=== PATIENT | female | born 2000 | race Caucasian/White ===

== ENCOUNTER 2024-10-04 14:15 | Observation (INO) ==
[2024-10-04 14:51] LABS: Basophils # (auto) 0.04 K/uL (0.00-0.20); Basophils % (auto) 0.2 %; Eosinophils # (auto) 0.02 K/uL (0.00-0.50); Eosinophils % (auto) 0.1 %; Hematocrit (blood only) 38.5 % (37.0-47.0); Hemoglobin 12.8 g/dl (12.0-16.0); Immature Granulocytes # (auto) 0.08 K/uL (0.01-0.20); Immature Granulocytes % (auto) 0.5 %; Lymphocytes # (auto) 1.73 K/uL (1.20-3.40); Lymphocytes % (auto) 10.5 %; Mean Corpuscular Hemoglobin 29.4 pg (25.0-34.0); Mean Corpuscular Hgb Conc 33.2 g/dL (32.0-36.0); Mean Corpuscular Volume 88.5 fL (80.0-100.0); Mean Platelet Volume 9.4 fL (9.4-12.4); Monocytes # (auto) 1.04 K/uL (0.11-0.59); Monocytes % (auto) 6.3 %; Neutrophils # (auto) 13.52 K/uL (1.40-6.50); Neutrophils % (auto) 82.4 %; Platelet Count 265 K/uL (130-400); RDW Coefficient of Variation 14.2 % (11.5-14.5); Red Blood Count 4.35 M/uL (4.20-5.40); White Blood Count 16.43 K/ul (4.8-10.8)
[2024-10-04 15:07] LABS: Albumin Globulin Ratio 1.2 (0.9-2); Albumin Level 4.4 gm/dl (3.4-5.0); BUN Creatinine Ratio 16.9 (10-20); Bilirubin,Total 1.4 mg/dl (0.2-1.0); Calcium 9.7 mg/dl (8.6-10.3); Creatinine Clr Calc Pharmacy 107.8 ml/min; Globulin 3.7 gm/dl (2.5-4.0); Total Protein 8.1 gm/dl (6.0-8.3)
--- NOTE | 2024-10-04 15:07 | Emergency Department Note ---
Impression & Plan Acute appendicitis, UTI (urinary tract infection) ED Provider Note NAME: HERNAN URIAS AGE: 23 SEX: F : 2000 ARRIVES VIA: Walk-In INFORMANT: Patient ED PROVIDER(S): GUERO Aguero, Donna Arthur MD CHIEF COMPLAINT: Pelvic pain HISTORY OF PRESENT ILLNESS: This 23-year-old female patient presents to the emergency department via private vehicle for evaluation of pelvic pain that began last night. She reports that awoke her from sleeping. 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 She states the pain feels different than her normal pelvic cramping. She states she awoke at 0430 this morning with severe pain, with rigors and cold sweats. She states the pain began to resolve, however, it returned. She denies fever, nausea, or vomiting. REVIEW OF SYSTEMS: A review of systems was performed with positives and pertinent negatives listed in the history of present illness. All other systems were reviewed and are negative. ALLERGIES: See below MEDICATIONS: See below PMH: See below PHYSICAL EXAM: VITALS: Vitals are noted on the nurse's note and reviewed by myself. Vital signs stable. GENERAL: 23-year-old female, in no acute distress, nondiaphoretic, well- developed well-nourished. SKIN: The skin was without rashes, erythema, edema, or bruising. HEAD: Normocephalic atraumatic. EYES: Pupils equal round and reactive to light and accommodation. Conjunctivae without injection, sclerae without icterus. Extraocular movements intact. NECK: Supple without nuchal rigidity. No lymphadenopathy. No thyromegaly. HEART: Regular rate and rhythm without murmurs gallops or rubs. LUNGS: Clear to auscultation bilaterally without wheezes, rales or rhonchi. No retractions or accessory muscle use. ABDOMEN: Positive bowel sounds x 4. Soft, TTP, RLQ, radiation of pain to the umbilicus. MUSCULOSKELETAL: No muscle atrophy, erythema, or edema noted. Full range of motion without joint tenderness in all extremities. No tenderness to palpation. Normal gait. Strength 5/5 throughout. NEURO: Patient was alert and oriented to person place and time. No focal neurological deficits. MEDICAL DECISION MAKING: The patient is a pleasant 23-year-old female who arrives to the emergency department for evaluation of the above-stated complaint. A saline lock was established, CBC, CMP, beta-hCG qualitative, urinalysis were obtained. CBC shows leukocytosis, 16.43, stable hemoglobin and hematocrit, CMP unremarkable, beta-hCG qualitative negative, urinalysis 3+ leukocyte esterase, greater than 50 WBCs, negative nitrites, negative bacteria. CT imaging of the abdomen and pelvis with IV contrast was obtained which shows findings consistent with acute appendicitis. A transvaginal ultrasound was also obtained prior to results of the CT scan returning, which showed no acute findings. I contacted Dr. James, from general surgery who agreed to evaluate the patient. Dr. James recommended providing the patient with IV antibiotics. The patient was provided 1 L of fluids, 1 g of IV acetaminophen, 4 g of morphine, and 4.5 mg of IV Zosyn. The patient was made n.p.o., and transported to the OR for an appendectomy. Please refer to Dr. James's documentation for further patient workup and care. DIFFERENTIAL DIAGNOSIS: Appendicitis, ovarian cyst, ovarian torsion, ectopic , TOA, PID, infections, diverticulitis, UTI, obstruction, mesenteric ischemia, aortic pathology, inflammatory bowel disease, renal colic, PUD, pancreatitis, biliary pathology, hernia, volvulus, constipation, as well as other pathologies. The chart was completed utilizing [employer] Speech voice recognition software. Grammatical errors, random word insertions, pronoun errors, and incomplete sentences are an occasional consequence of this system due to software limitations, ambient noise, and hardware issues. Any formal questions or concerns about the content, text, or information contained within the body of this dictation should be directly addressed to the physician for clarification. Past Med/Surg History Problem List (Updated 10/06/24 @ 10:09 by GUERO May) UTI (urinary tract infection) (Acute) Acute appendicitis (Acute) No significant past surgical history No chronic diseases present Social History Smoking Status: Never smoker Hx Alcohol Use: Yes Alcohol type: hard liquor Hx Substance Use: No Preferred Language: Slovak Communication Ability: Effective Education Department Registrar Required: No Beliefs That Will Affect Care: None Current Living Situation Comment: Student lives with apartment and roomates. Other Information That Helps Us Care for You: No Feels Safe at Home: Yes Safety Concerns: Feels Safe At This Time Assistive Devices: None Allergies Allergies Allergy/AdvReac Type Severity Reaction Status Date / Time No Known Allergies Allergy Verified 10/04/24 18:04 Home Meds Home Medications Medication Instructions Recorded Confirmed levonorgestrel-ethinyl estradiol 1 tab PO DAILY 03/03/24 10/04/24 0.1 mg-20 mcg tablet (Sronyx) infliximab 100 mg intravenous 100 mg IV 4XWK 10/04/24 10/04/24 solution (Remicade) Previous Rx's Medication Instructions Recorded oxycodone-acetaminophen 5 mg-325 1 tab PO Q6H PRN pain #7 tabs 10/05/24 mg tablet Results & Data (ED) Vital Signs Vital Signs - 24 hr 10/04/24 14:18 Temperature 36.4 C L Temperature Source Temporal Artery Scan Pulse Rate 113 H Respiratory Rate 20 Respiratory Effort / Characteristics Non-Labored Spontaneous Respiratory Depth Normal Blood Pressure 147/114 H Blood Pressure Mean 125 Blood Pressure Position Sitting Pulse Oximetry 98 Oxygen Delivery Method Room Air Sepsis Recent Fever Within 48 Hours No Sepsis New/Unexplained Change in Mental Status N/A Sepsis Action Taken by Nursing No Action Required Home Medications Current Medication List: was personally reviewed by me Laboratory Data Attestation: I reviewed the patient's lab results. 10/04/24 14:35 10/04/24 14:35 Lab Results 10/04/24 10/04/24 Range/Units 14:33 14:35 WBC 16.43 H (4.8-10.8) K/ul RBC 4.35 (4.20-5.40) M/uL Hgb 12.8 (12.0-16.0) g/dl Hct 38.5 (37.0-47.0) % MCV 88.5 (80.0-100.0) fL MCH 29.4 (25.0-34.0) pg MCHC 33.2 (32.0-36.0) g/dL RDW Std Deviation 46.0 (36.4-46.3) fL RDW Coeff of [place] 14.2 (11.5-14.5) % Plt Count 265 (130-400) K/uL MPV 9.4 (9.4-12.4) fL Immature Gran % (Auto) 0.5 % Neut % (Auto) 82.4 % Lymph % (Auto) 10.5 % [place] % (Auto) 6.3 % Eos % (Auto) 0.1 % Baso % (Auto) 0.2 % Neut # (Auto) 13.52 H (1.40-6.50) K/uL Lymph # (Auto) 1.73 (1.20-3.40) K/uL [place] # (Auto) 1.04 H (0.11-0.59) K/uL Eos # (Auto) 0.02 (0.00-0.50) K/uL Baso # (Auto) 0.04 (0.00-0.20) K/uL Immature Gran # (Auto) 0.08 (0.01-0.20) K/uL Sodium 132 L (136-145) mmol/L Potassium 4.0 (3.5-5.1) mmol/L Chloride 100 (98-107) mmol/L Carbon Dioxide 25 (21-32) mmol/L Anion Gap 7 (3-11) BUN 13 (6-23) mg/dl Creatinine 0.77 (0.6-1.2) mg/dl Est Cr Clr Drug Dosing 107.8 ml/min eGFR 112.48 BUN/Creatinine Ratio 16.9 (10-20) Glucose 95 (70-99(Fasting)) mg/dl Calcium 9.7 (8.6-10.3) mg/dl Total Bilirubin 1.4 H (0.2-1.0) mg/dl AST 51 H (13-39) U/L ALT 51 (7-52) U/L Alkaline Phosphatase 69 (34-104) U/L Total Protein 8.1 (6.0-8.3) gm/dl Albumin 4.4 (3.4-5.0) gm/dl Globulin 3.7 (2.5-4.0) gm/dl Albumin/Globulin Ratio 1.2 (0.9-2) Lipase 19 (11-82) U/L HCG, Qual Negative (Negative) Urine Color [place] Urine Appearance Cloudy A (Clear) Urine pH 7.0 (4.5-7.5) Ur Specific [place] 1.022 (1.000-1.030) Urine Protein Trace H (Negative) Urine Glucose (UA) Negative (Negative) Urine Ketones Trace H (Negative) Urine Blood Trace H (Negative) Urine Nitrite Negative (Negative) Urine Bilirubin Negative (Negative) Urine Urobilinogen Negative (Negative) Ur Leukocyte Esterase 3+ H (Negative) Urine WBC (Auto) >50 H (0-5) /hpf Urine RBC (Auto) 0-2 (0-2) /hpf U Hyaline Cast (Auto) 0-2 (0-2) /lpf U Epithel Cells (Auto) 3-5 H (0-2) /hpf Urine Bacteria (Auto) None Seen (None Seen) Administered Medications Discontinued Medications Bupivacaine HCl/Epinephrine Bitart (Bupivacaine/Epinephrine 0.5% Mpf 1:200,000 30 Ml Vial) Confirm Administered Dose 30 ml .ROUTE .STK-MED ONE Stop: 10/04/24 18:48 Last Admin: 10/04/24 19:11 Dose: 30 ml Documented By: PUJA Enoxaparin Sodium (Enoxaparin Inj 40 Mg/0.4 Ml Syr) 40 mg SQ Q24H RITO Stop: 11/04/24 08:59 Last Admin: 10/05/24 08:06 Dose: 40 mg Documented By: LESVIA Sodium Chloride (Nss) 1,000 mls @ 999 mls/hr IV .Q1H1M ONE Stop: 10/04/24 17:19 Last Infusion: 10/04/24 17:42 Dose: Infused Documented By: Admin: 10/04/24 16:40 Dose: 999 mls/hr Documented By: MARGUERITE Acetaminophen (Ofirmev) 1,000 mg in 100 mls @ 400 mls/hr IV NOW STA Stop: 10/04/24 17:04 Last Infusion: 10/04/24 17:40 Dose: Infused Documented By: Admin: 10/04/24 17:23 Dose: 400 mls/hr Documented By: MARGUERITE Piperacillin Sod/Tazobactam Sod (Zosyn) 4.5 gm in 100 mls @ 200 mls/hr IV NOW ONE; Protocol Stop: 10/04/24 18:03 Last Infusion: 10/04/24 20:49 Dose: Infused Documented By: Admin: 10/04/24 17:45 Dose: 200 mls/hr Documented By: ADOLPH Ioversol (Optiray 320 100ml) 93 ml IV ONCE ONE Stop: 10/04/24 15:26 Last Admin: 10/04/24 15:26 Dose: 93 ml Documented By: NEAL Ketorolac Tromethamine (Ketorolac 30 Mg/Ml Vial) 30 mg IV Q6H PRN PRN Reason: Pain & Pre PT Stop: 10/09/24 20:22 Last Admin: 10/05/24 05:52 Dose: 30 mg Documented By: Admin: 10/04/24 22:09 Dose: 30 mg Documented By: LOWELL Morphine Sulfate (Morphine Sulfate 4 Mg/Ml 1 Ml Carp\Vial) 4 mg IV NOW STA Stop: 10/04/24 16:51 Last Admin: 10/04/24 17:17 Dose: 4 mg Documented By: MARGUERITE Oxycodone/Acetaminophen (Oxycodone/Acetaminophen 5mg/325mg Tab) 1 tab PO Q4H PRN PRN Reason: MODERATE Pain (4,5,6) & Pre PT Stop: 10/18/24 20:22 Last Admin: 10/05/24 11:09 Dose: 1 tab Documented By: LESVIA Imaging Data Attestation: I personally reviewed and interpreted this imaging study as follows: Discharge Plan Visit Data Chief Complaint: Abdominal Pain Stated Complaint: ABDOMINAL PAIN ED Provider: Donna Arthur ED Midlevel Provider: Ruthie Man Discharge Problem: Acute appendicitis, UTI (urinary tract infection) Patient Disposition: Admitted As Inpatient Discharge Instructions Interventions: ED Discharge Assessment Last Done: 10/04/24 18:13 Discharge Problem: Acute appendicitis Qualifiers: Acute appendicitis type: unspecified acute appendicitis type Qualified Code(s): K35.80 - Unspecified acute appendicitis UTI (urinary tract infection) Qualifiers: Urinary tract infection type: acute cystitis Hematuria presence: without hematuria Qualified Code(s): N30.00 - Acute cystitis without hematuria
[2024-10-04 15:09] LABS: Pregnancy Test, Serum Negative (Negative)
[2024-10-04 15:13] LABS: Appearance Urine Cloudy (Clear); Bacteria Urine Automated None Seen (None Seen); Bilirubin Urine Negative (Negative); Blood Urine Trace (Negative); Cast Urine Automated 0-2 /lpf (0-2); Color Urine Orange; Glucose Urine UA Negative (Negative); Ketones Urine Trace (Negative); Leukocyte Esterase Urine 3+ (Negative); Nitrite Urine Negative (Negative); Protein Urine Trace (Negative); RBC Urine Automated 0-2 /hpf (0-2); Specific Gravity Urine 1.022 (1.000-1.030); Urobilinogen Urine Negative (Negative); WBC Urine Automated >50 /hpf (0-5)
[2024-10-04] MEDS: OPTIRAY 320 100ml IV ONE (15:26)
--- NOTE | 2024-10-04 16:08 | CT Scan Report ---
ABDOMEN AND PELVIS CT WITH IV CONTRAST CT DOSE: 681.25 mGy.cm HISTORY: Acute lower pelvic pain pelvic pain TECHNIQUE: Multiaxial CT images of the abdomen and pelvis were performed following the IV administrat ion of 93 cc of Optiray, A dose lowering technique was utilized adhering to the principles of ALARA. COMPARISON STUDY: None. FINDINGS: The lung bases are clear. The liver, spleen, gallbladder, pancreas, kidneys, and adrenal gl ands are within normal limits. Borderline enlarged retroperitoneal lymph nodes. Right lower quadrant lymph nodes measure up to 9 mm. The appendix is dilated, fluid-filled and inflamed measuring up to 9 mm. No abscess. Trace pelvic ascites. Mild wall thickening noted involving the cecum, ascending colon and also a few loops of ileum within the pelvis. Decompressed urinary bladder with mild wall thicken ing. Unremarkable uterus. No adnexal mass lesions. Moderate fecal retention of the rectum. Tampon wit hin the vagina. No acute fracture. IMPRESSION: 1. Acute appendicitis. No pneumoperitoneum or abscess. 2. Reactive ileocolic lymphadenopathy. 3. Mild wall thickening involving a few loops of ileum and also the cecum, also likely reactive. ACT 112: Negative or not required by law. The above report was generated using voice recognition software. It may contain grammatical, syntax o r spelling errors. Electronically signed by: Adam Gómez M.D. 10/04/2024 4:07 PM
[2024-10-04] MEDS: SODIUM CHLORIDE 0.9% 1,000 ML IV ONE (16:40)
--- NOTE | 2024-10-04 16:53 | Ultrasound Report ---
EXAM: US Pelvis Transabdominal and Transvaginal Complete INDICATION: Right lower quadrant pain. TECHNIQUE: Real-time complete transabdominal and transvaginal pelvic ultrasound with image documentation. Transvaginal imaging was used for better evaluation of the endometrium and adnexa. COMPARISON: No relevant prior studies available. FINDINGS: Uterus/cervix: Trace fluid in the cervix. No myometrial mass. The uterus measures 6.1 x 2.2 x 3.4 cm. The endometrial stripe measures 0.2 cm in thickness. Right ovary: No abnormality noted. Normal blood flow. The right ovary measures 2.4 x 1.6 x 0.6 cm. Left ovary: Slightly obscured by bowel gas artifact. Normal blood flow. The left ovary measures 3.2 x 1.4 x 1.0 cm. Free fluid: No free or loculated pelvic fluid. Bladder: No significant abnormality noted. Wall is normal thickness for degree of distention. IMPRESSION: No acute findings in the pelvis. ACT 112: Negative or not required by law. Electronically signed by Libra Koch 10-04-2024 4:53 PM
[2024-10-04] MEDS: MoRPHine SULFATE 4 MG/ML 1 ML CARP\\VIAL IV STA (17:17)
[2024-10-04] MEDS: ACETAMINOPHEN 1,000 MG/100 ML VIAL IV STA (17:23)
[2024-10-04] MEDS ORDERED: PROPOFOL IV EMULSION 10 MG/ML 20 ML VIAL IV ONE (17:41)
[2024-10-04] MEDS ORDERED: ONDANSETRON INJ 2 MG/ML 2 ML VIAL ONE (17:41)
[2024-10-04] MEDS ORDERED: GLYCOPYRROLATE 0.2 MG/ML VIAL ONE (17:41)
[2024-10-04] MEDS ORDERED: LIDOCAINE 2% 2 ML VIAL/AMP(20MG/ML) INFIL ONE (17:41)
[2024-10-04] MEDS ORDERED: MIDAZOLAM HCL 1 MG/ML 2ML VIAL ONE (17:41)
[2024-10-04] MEDS ORDERED: ROCURONIUM BROMIDE 10 MG/ML 5 ML VIAL IV ONE (17:41)
[2024-10-04] MEDS ORDERED: fentaNYL citrate PF 100 MCG/2 ML VIAL ONE (17:41)
[2024-10-04] MEDS ORDERED: DEXAMETHASONE SOD INJ 4 MG/ML VIAL ONE (17:41)
[2024-10-04] MEDS ORDERED: SUGAMMADEX SODIUM 200 MG/2 ML VIAL IV ONE (17:42)
[2024-10-04] MEDS: PIPERACILLIN/TAZOBACTAM 4.5 GM/100 ML BAG IV ONE (17:45)
--- NOTE | 2024-10-04 18:08 | History & Physical Report ---
Date of Service October 04, 2024 Assessment & Plan (1) Acute appendicitis: Plan 23-year-old woman presents with acute appendicitis. We discussed the risks and benefits of a laparoscopic appendectomy. All her questions were answered. She is agreeable to proceed. Consent has been obtained. Will take her to the operating room at the earliest convenience. Zosyn has been ordered. History of Present Illness Primary Care Provider: [facility] 23-year-old woman presents with a 16-hour history of abdominal pain diffuse at first and now localized to the right lower quadrant. She did have some chills and sweats. She denies nausea or vomiting. Last meal was yesterday. She has not had a bowel movement today. She denies chest pain or shortness of breath. She is on infliximab for hidradenitis. Allergies Allergy/AdvReac Type Severity Reaction Status Date / Time No Known Allergies Allergy Verified 10/04/24 18:04 Home Medications Medication Instructions Recorded Confirmed Type levonorgestrel-ethinyl estradiol 1 tab PO DAILY 03/03/24 10/04/24 History 0.1 mg-20 mcg tablet (Sronyx) infliximab 100 mg intravenous 100 mg IV 10/04/24 History solution (Remicade) Past Med/Surg History Problem List (Updated 10/04/24 @ 18:09 by Max James MD) Acute appendicitis No significant past surgical history No chronic diseases present Social History Smoking Status: Current every day smoker Preferred Language: Kyrgyz Feels Safe at Home: Yes Review of Systems Review of Systems: All systems reviewed & are unremarkable except as noted in HPI & below Physical Exam Constitutional: WD/WN, vitals as above Eyes: PERRL, conjunctivae normal, anicteric sclerae Neck: trachea midline, no thyromegaly Respiratory: normal respiratory effort; no respiratory distress and no labored breathing Cardiovascular: Rate/Rhythm: regular rate and regular rhythm Gastrointestinal (Abdomen): Inspection/Auscultation: abdomen normal to inspection; abdomen not distended Percussion/Palpation: + abdomen tender ( RLQ) and abdomen soft; no guarding and abdomen not rigid positive Rovsing sign Skin: no rashes, warm and dry Psychiatric: A+Ox3, euthymic affect Results & Data Results & Data Vital Signs (Past 12 Hours) Vital Signs Temp Pulse Pulse Resp BP BP Pulse Ox 10/04/24 16:42 88 18 121/84 98 10/04/24 14:18 36.4 C L 113 H 20 147/114 H 98 O2 Del Method 10/04/24 16:42 Room Air 10/04/24 14:18 Room Air Laboratory Results 10/04/24 10/04/24 Range/Units 14:35 14:33 WBC 16.43 H (4.8-10.8) K/ul RBC 4.35 (4.20-5.40) M/uL Hgb 12.8 (12.0-16.0) g/dl Hct 38.5 (37.0-47.0) % MCV 88.5 (80.0-100.0) fL MCH 29.4 (25.0-34.0) pg MCHC 33.2 (32.0-36.0) g/dL RDW Std Deviation 46.0 (36.4-46.3) fL RDW Coeff of [place] 14.2 (11.5-14.5) % Plt Count 265 (130-400) K/uL MPV 9.4 (9.4-12.4) fL Immature Gran % (Auto) 0.5 % Neut % (Auto) 82.4 % Lymph % (Auto) 10.5 % [place] % (Auto) 6.3 % Eos % (Auto) 0.1 % Baso % (Auto) 0.2 % Neut # (Auto) 13.52 H (1.40-6.50) K/uL Lymph # (Auto) 1.73 (1.20-3.40) K/uL [place] # (Auto) 1.04 H (0.11-0.59) K/uL Eos # (Auto) 0.02 (0.00-0.50) K/uL Baso # (Auto) 0.04 (0.00-0.20) K/uL Immature Gran # (Auto) 0.08 (0.01-0.20) K/uL Sodium 132 L (136-145) mmol/L Potassium 4.0 (3.5-5.1) mmol/L Chloride 100 (98-107) mmol/L Carbon Dioxide 25 (21-32) mmol/L Anion Gap 7 (3-11) BUN 13 (6-23) mg/dl Creatinine 0.77 (0.6-1.2) mg/dl Est Cr Clr Drug Dosing 107.8 ml/min eGFR 112.48 BUN/Creatinine Ratio 16.9 (10-20) Glucose 95 (70-99(Fasting)) mg/dl Calcium 9.7 (8.6-10.3) mg/dl Total Bilirubin 1.4 H (0.2-1.0) mg/dl AST 51 H (13-39) U/L ALT 51 (7-52) U/L Alkaline Phosphatase 69 (34-104) U/L Total Protein 8.1 (6.0-8.3) gm/dl Albumin 4.4 (3.4-5.0) gm/dl Globulin 3.7 (2.5-4.0) gm/dl Albumin/Globulin Ratio 1.2 (0.9-2) Lipase 19 (11-82) U/L HCG, Qual Negative (Negative) Urine Color [place] Urine Appearance Cloudy A (Clear) Urine pH 7.0 (4.5-7.5) Ur Specific [place] 1.022 (1.000-1.030) Urine Protein Trace H (Negative) Urine Glucose (UA) Negative (Negative) Urine Ketones Trace H (Negative) Urine Blood Trace H (Negative) Urine Nitrite Negative (Negative) Urine Bilirubin Negative (Negative) Urine Urobilinogen Negative (Negative) Ur Leukocyte Esterase 3+ H (Negative) Urine WBC (Auto) >50 H (0-5) /hpf Urine RBC (Auto) 0-2 (0-2) /hpf U Hyaline Cast (Auto) 0-2 (0-2) /lpf U Epithel Cells (Auto) 3-5 H (0-2) /hpf Urine Bacteria (Auto) None Seen (None Seen) Diagnostic Findings ABDOMEN AND PELVIS CT WITH IV CONTRAST CT DOSE: 681.25 mGy.cm HISTORY: Acute lower pelvic pain pelvic pain TECHNIQUE: Multiaxial CT images of the abdomen and pelvis were performed following the IV administration of 93 cc of Optiray, A dose lowering technique was utilized adhering to the principles of ALARA. COMPARISON STUDY: None. FINDINGS: The lung bases are clear. The liver, spleen, gallbladder, pancreas, kidneys, and adrenal glands are within normal limits. Borderline enlarged retroperitoneal lymph nodes. Right lower quadrant lymph nodes measure up to 9 mm. The appendix is dilated, fluid-filled and inflamed measuring up to 9 mm. No abscess. Trace pelvic ascites. Mild wall thickening noted involving the cecum, ascending colon and also a few loops of ileum within the pelvis. Decompressed urinary bladder with mild wall thickening. Unremarkable uterus. No adnexal mass lesions. Moderate fecal retention of the rectum. Tampon within the vagina. No acute fracture. IMPRESSION: 1. Acute appendicitis. No pneumoperitoneum or abscess. 2. Reactive ileocolic lymphadenopathy. 3. Mild wall thickening involving a few loops of ileum and also the cecum, also likely reactive. ACT 112: Negative or not required by law. The above report was generated using voice recognition software. It may contain grammatical, syntax or spelling errors. Electronically signed by: Adam Gómez M.D. 10/04/2024 4:07 PM (1) Acute appendicitis Acute appendicitis type: with localized peritonitis Appendicitis gangrene presence: without gangrene Appendicitis perforation presence: unspecified whether perforation present Appendicitis abscess presence: without abscess Qualified Code(s): K35.30 - Acute appendicitis with localized peritonitis, without perforation or gangrene
[2024-10-04] MEDS ORDERED: ONDANSETRON INJ 2 MG/ML 2 ML VIAL IV PRN ×2 (18:43→20:23)
[2024-10-04] MEDS ORDERED: ePHEDrine sulfate 50 MG/ML AMP IV PRN (18:43)
[2024-10-04] MEDS ORDERED: ATROPINE SULFATE 0.1 MG/ML 10ML SYR IV PRN (18:43)
[2024-10-04] MEDS ORDERED: HYDROmorphone INJ 2 MG/ML SYR/VIAL IV PRN (18:43)
[2024-10-04] MEDS ORDERED: PROMETHAZINE HCL 6.25 MG in SODIUM CHLORIDE 0.9% 50 ML IV PRN (18:43)
--- NOTE | 2024-10-04 18:43 | Anesthesiology Consultation ---
Date of Service October 04, 2024 Assessment & Plan Chart Review Chart Review: Acceptable Risk for Surgery and Patient NOT seen in Pre Admission Testing Consults Requested none ASA [id number] Proposed Anesthesia Anesthesia Type: General Risk / Benefits Reviewed With: PT / POA / Parent / Guardian, Accepts Plan and Informed Consent Obtained History Surgery Operation Date: 10/04/24 17:30 Proposed Procedures p Laparoscopic Appendectomy - Max James MD Height/Weight Height: 5 ft 4 in Weight: 65.7 kg Allergies Allergy/AdvReac Type Severity Reaction Status Date / Time No Known Allergies Allergy Verified 10/04/24 18:04 Medications Home Medications Medication Instructions Recorded Confirmed Last Taken levonorgestrel-ethinyl estradiol 1 tab PO DAILY 03/03/24 10/04/24 03/02/24 0.1 mg-20 mcg tablet (Sronyx) infliximab 100 mg intravenous 100 mg IV [id number] 10/04/24 10/04/24 09/30/24 solution (Remicade) NPO Date Last Intake of Fluids: 10/04/24 Time Last Intake of Fluids: 16:00 Last Intake of Fluids Comment: sip of water Date Last Intake of Solids: 10/03/24 Time Last Intake of Solids: 19:00 Exercise / Class Metabolic Activity II 4-5 Yardwork/Stairs/Walk up hill Past Anesthesia History No Hx of Anesthesia Complications and No Family Hx of Anesthesia Complications History of PONV No Hx of PONV and No Hx of Motion Sickness Social History Smoking Status: Current every day smoker Physical Exam Vital Signs Last Vital Signs Temp 37.6 C H 10/04/24 18:16 Pulse 92 H 10/04/24 18:16 Resp 17 10/04/24 18:16 BP 142/89 H 10/04/24 18:16 Pulse Ox 98 10/04/24 18:16 O2 Del Method Room Air 10/04/24 18:16 ENMT Mouth: no dentition abnormality Thyromental Distance: > or= 3.5 Finger Breadths Mallampati Class: II Neck normal visual inspection Respiratory normal respiratory effort Auscultation: lungs clear to auscultation bilaterally Cardiovascular Rate/Rhythm: regular rate and regular rhythm Psychiatric Orientation: alert Testing Laboratory Results 10/04/24 14:35 10/04/24 14:35 Urine Color [place] 10/04/24 14:33 Urine Appearance Cloudy (Clear) A 10/04/24 14:33 Urine pH 7.0 (4.5-7.5) 10/04/24 14:33 Ur Specific [place] 1.022 (1.000-1.030) 10/04/24 14:33 Urine Protein Trace (Negative) H 10/04/24 14:33 Urine Glucose (UA) Negative (Negative) 10/04/24 14: Urine Ketones Trace (Negative) H 10/04/24 14: Urine Nitrite Negative (Negative) 10/04/24 14:33 Ur Leukocyte Esterase 3+ (Negative) H 10/04/24 14:33 Urine WBC (Auto) >50 /hpf (0-5) H 10/04/24 14:33 Urine RBC (Auto) 0-2 /hpf (0-2) 10/04/24 14: U Hyaline Cast (Auto) 0-2 /lpf (0-2) 10/04/24 14:33 U Epithel Cells (Auto) 3-5 /hpf (0-2) H 10/04/24 14:33 Urine Bacteria (Auto) None Seen (None Seen) 10/04/24 14:33
[2024-10-04] MEDS ORDERED: PHENYLEPHRINE 100MCG/ML 5ML SYR ONE (19:03)
[2024-10-04] MEDS: BUPIVACAINE/EPINEPHRINE 0.5% MPF 1:200,000 30 ML VIAL ONE (19:11)
--- NOTE | 2024-10-04 19:44 | Post Operative Brief Note ---
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
--- NOTE | 2024-10-04 19:45 | Operative Report ---
Post Operative Report Pre & Post Diagnosis Operation Date: 10/04/24 17:30 preop diagnosis: Acute appendicitis Postop diagnosis: Same I identified the patient and participated in the time-out.: Yes Procedure Operation Date: 10/04/24 17:30 laparoscopic appendectomy Surgeon Max James MD [employer] none Estimated Blood Loss 5 Findings Consistent with Post-Op Diagnosis acute appendicitis, no perforation Specimens appendix Drains none Anesthesia Type General Complications none Description of Procedure the patient was taken to the operating room, and placed supine on the operating table. A timeout was performed, perioperative antibiotics were administered, SCD boots were placed. After adequate anesthesia and analgesia was obtained, the abdomen was prepped and draped in the normal sterile fashion. A 1 cm incision was made in the supraumbilical region and carried down to the level of the fascia. A trach hook was used to grasp the fascia and elevated and a varies needle was used to enter the abdominal cavity. The abdomen was insuff lated to a pressure of 15 mmHg, and a 5 mm trocar was placed in this location. A 5 mm 30 degree laparoscope was placed into the abdominal cavity, and the abdomen was surveyed. The patient was placed in Trendelenburg and slightly to the left. One 5 mm trocar was placed in the right upper quadrant, and one 12 mm trocar was placed in the left lower quadrant under direct visualization. The right colon was identified and traced down to the cecum. The appendix was identified and elevated anteriorly and medially. A window was created at the base of the appendix with a [place] dissector. The Endo JAZZY stapler was used to transect the appendix at its base through noninflamed tissue, and subsequently the mesoappendix. The appendix was placed in an Endo Catch bag, and removed via the left lower quadrant port site. Attention was turned to hemostasis, which was excellent. The abdomen was copiously irrigated and suctioned free, and again hemostasis was found to be excellent. All trochars removed under direct visualization. The abdomen was desufflated. The fascia in the 12 mm port site was closed with a 0 Vicryl suture. The skin was closed with a running 4-0 Monocryl subcuticular stitch. Dermabond was applied. The patient tolerated the procedure without complication, and was transferred in stable condition to the PACU. All instrument, needle, and sponge counts were correct at the end of the case. I attest to the content of the Intraoperative Record and any orders documented therein. Any exceptions are noted below.
--- NOTE | 2024-10-04 19:49 | Anesthesiology Progress Note ---
Date of Service October 04, 2024 Anesthesia Post Procedure Vital Signs Vital Signs: Temp Pulse Pulse Pulse Resp BP BP 10/04/24 19:40 118 H 16 127/77 10/04/24 19:34 36.6 C 116 H 16 121/84 10/04/24 18:16 37.6 C H 92 H 17 142/89 H 10/04/24 16:42 88 18 121/84 10/04/24 14:18 36.4 C L 113 H 20 147/114 H Pulse Ox O2 Del Method 10/04/24 19:40 99 Room Air 10/04/24 19:34 98 Room Air 10/04/24 18:16 98 Room Air 10/04/24 16:42 98 Room Air 10/04/24 14:18 98 Room Air Transfer of Care Handoff Completed per policy Notes Mental Status: alert / awake / arousable Patient Amnestic to Procedure: Yes Nausea / Vomiting: adequately controlled Pain: adequately controlled Airway Patency, RR, SpO2: stable & adequate BP & HR: stable & adequate Hydration State: stable & adequate Anesthetic Complications: no major complications apparent
[2024-10-04] MEDS ORDERED: MoRPHine SULFATE 2 MG/ML CARP IV PRN (20:23)
[2024-10-04] MEDS ORDERED: PROMETHAZINE 12.5 MG/50.5 ML BAG IV PRN (20:23)
[2024-10-04] MEDS ORDERED: diphenhydrAMINE Capsule 25 MG CAP PO PRN (20:23)
[2024-10-04] MEDS: KETOROLAC 30 MG/ML VIAL IV PRN (22:09)
--- NOTE | 2024-10-05 05:48 | Surgery Progress Note ---
Date of Service October 05, 2024 Assessment & Plan (1) Acute appendicitis: Plan: POD #1 s/p lap appendectomy doing well Will advance diet as tolerated Encourage ambulation Probable discharge to home today Admission and Anticipated Discharge Date Admission Date: October 04, 2024 Subjective Doing well. Minimal pain. No nausea or vomiting, tolerating liquids and crackers. No fevers. Physical Exam Physical Exam: NAD, A&O x 3 NCAT, no scleral icterus AFVSS Abdomen: Soft, mild TTP Incisions C/D/I with Dermabond Results & Data Vital Signs (Past 12 Hours) Vital Signs Temp Pulse Pulse Resp BP Pulse Ox O2 Del Method 10/05/24 04:05 36.6 C 69 16 93/49 L 99 Room Air 10/04/24 23:22 36.9 C 81 16 101/59 L 96 Room Air 10/04/24 22:00 37.5 C 86 16 109/73 97 Room Air 10/04/24 21:05 37.1 C 95 H 18 118/78 97 Room Air 10/04/24 20:31 36.8 C 97 H 16 126/87 97 Room Air 10/04/24 20:06 36.9 C 100 H 18 115/76 97 Room Air 10/04/24 20:00 99 H 14 121/80 96 Room Air 10/04/24 19:50 37.2 C 108 H 16 121/78 98 Room Air 10/04/24 19:40 118 H 16 127/77 99 Room Air 10/04/24 19:34 36.6 C 116 H 16 121/84 98 Room Air 10/04/24 18:16 37.6 C H 92 H 17 142/89 H 98 Room Air (1) Acute appendicitis Acute appendicitis type: with localized peritonitis Appendicitis gangrene presence: without gangrene Appendicitis perforation presence: unspecified whether perforation present Appendicitis abscess presence: without abscess Qualified Code(s): K35.30 - Acute appendicitis with localized peritonitis, without perforation or gangrene
[2024-10-05] MEDS: ENOXAPARIN INJ 40 MG/0.4 ML SYR SQ SCH (08:06)
[2024-10-05] MEDS: oxyCODONE/ACETAMINOPHEN 5mg/325mg TAB PO PRN (11:09)
--- NOTE | 2024-10-05 11:13 | Discharge Summary ---
Date of Service October 05, 2024 Admission HPI Per Admitting Provider 23-year-old woman presents with a 16-hour history of abdominal pain diffuse at first and now localized to the right lower quadrant. She did have some chills and sweats. She denies nausea or vomiting. Last meal was yesterday. She has not had a bowel movement today. She denies chest pain or shortness of breath. She is on infliximab for hidradenitis. Principal Diagnosis acute appendicitis Discharge Data Allergies Allergy/AdvReac Type Severity Reaction Status Date / Time No Known Allergies Allergy Verified 10/04/24 18:04 Consultations 10/04/24 17:30 ED Decision to Admit Stat Procedures Performed Operation Date: 10/04/24 17:30 Actual Procedures p Laparoscopic Appendectomy(Not Applicable) - Max James MD Ordered Studies 10/04/24 15:07 CT abd pelvis IV con only Stat US pelvic complete Stat US transvaginal Stat Hospital Course (1) Acute appendicitis: Patient taken to operating room from emergency department for laparoscopic appendectomy by Dr. James. Patient found to have acute appendicitis without perforation or abscess. Patient tolerated procedure without difficulty and transferred to med/surg floor for postop care. Diet and activity as tolerated, pain management as needed, antiemetics as needed. Patient was doing well on POD # 1 and discharged home in stable condition. Total Time Total Time Spent Total Time Spent (In Minutes): 20 Total Time Includes: Examination of the Patient, Discharge Planning and Medication Reconciliation Discharge Plan Discharge Items Patient Disposition: Home - Self-Care Reason For Visit: ACUTE APPENDICITIS Discharge Diagnosis: Acute appendicitis Activity: Per Instructions section Non-emergency contact: Primary Care Provider and Surgeon Call non-emergency contact if: you have any medication questions, your pain is not controlled, your pain is concerning for you, you have a fever, your temperature is above 101, your wound has increased redness, your wound has increased drainage and your wound pain has increased Follow-up/Referrals: Yandy Cox PA-C [Physician Patcher [employer]] - [facility] [Primary Care Provider] - Diet: Regular Addtl Attending Provider Instructions: Post-Surgical ~Discharge Instructions Activity Recommendations: - lifting limitation: (20 pounds for 2 weeks), - exercise/sex/sports limit: (nonstrenuous for 2 weeks), - driving or machine use limit: (none for 1 week), - Shower/bathe limit: (may shower tonight, no submerging incisions underwater) Diet: - Resume previous diet SPECIAL CARE INSTRUCTIONS: - May shower. Let water run over area and pat dry. - Leave surgical glue on incisions, this will fall off on its own. - Call the surgeon's office with any questions or concerns - - (ex. temperature higher than 101 degrees F, excessive bleeding or pain). MEDICATIONS: - Resume previous medications unless instructed otherwise by your surgeon. - May alternate extra strength Tylenol and Ibuprofen as needed for mild to moderate pain -650 mg Tylenol every 6 hours as needed - Ibuprofen 600 mg every 6 hours as needed (take with food) - Percocet 1 every 6 hours, as needed for moderate to severe pain - Recommend daily stool softener (Colace) while taking narcotic pain medication to prevent constipation and straining. Drink plenty of water daily. FOLLOW UP VISIT: - If not already scheduled, please call the office to schedule a two week follow-up appointment. Office number Pending Studies at Discharge: Yes (appendix pathology, will be reviewed at postop visit) Stand-Alone Forms: My [facility], Work/School Release, Smoking Cessation Medications and DC Order Prescriptions: New oxycodone-acetaminophen 5-325 mg tablet 1 tab PO Q6H PRN (Reason: pain) Qty: 7 0RF Continued levonorgestrel-ethinyl estrad [Sronyx] 0.1-20 mg-mcg tablet 1 tab PO DAILY infliximab [Remicade] 100 mg Recon Soln 100 mg IV [id number] Discharge Orders: Discharge Order (Routine); Ordered 10/05/24 Ordered By: Yandy Cox Admission Data Admit Date/Time: 10/04/24 19:47 Attending Provider: Max James Admit Provider: Max James Primary Care Provider: [facility] Other Providers: Max James
== END 2024-10-05 11:46 | disposition home or self-care (01) ==
LOC: ED 14:15 → OR 18:17 → 3N 18:17